=== PATIENT | female | born 2000 | race Caucasian/White ===

== ENCOUNTER → 2020-06-03 | Outpatient (CLI) | payer BC ==
[~2020-06-03] MED LIST: BENTYL 10MG CAP10 MG PO; CYCLOBENZAPRINE10 MG PO; CYCLOBENZAPRINE5 MG PO; NAPROSYN500 MG PO; ZOFRAN ODT 4 MG4 MG SL
== END ==
LOC: KOH-I 09:55
DX: R19.7 Diarrhea, unspecified (principal); K76.0 Fatty (change of) liver, not elsewhere classified
CPT/HCPCS: 76705

== ENCOUNTER 2020-06-08 20:32 | Emergency (ER) | payer BC ==
[~2020-06-08 20:32] MED LIST changes: -CYCLOBENZAPRINE10 MG PO; -NAPROSYN500 MG PO
[2020-06-08] MEDS ORDERED: CYCLOBENZAPRINE10 MG PO (23:18)
[2020-06-08] MEDS ORDERED: NAPROSYN500 MG PO (23:18)
== END 2020-06-08 23:34 | disposition home or self-care (01) ==
LOC: ER1 20:32
DX: S13.4XXA Sprain of ligaments of cervical spine, initial encounter (principal); S70.01XA Contusion of right hip, initial encounter; S60.221A Contusion of right hand, initial encounter; S40.011A Contusion of right shoulder, initial encounter; F17.290 Nicotine dependence, other tobacco product, uncomplicated; V48.5XXA Car driver injured in noncollision transport accident in traffic accident, initial encounter; Y92.410 Unspecified street and highway as the place of occurrence of the external cause
CPT/HCPCS: 72125; 73030; 73130; 73502; 84703; 99284

== ENCOUNTER 2021-07-21 00:10 | Emergency (ER) | payer BC ==
[~2021-07-21 00:10] MED LIST changes: +CYCLOBENZAPRINE10 MG PO; +NAPROSYN500 MG PO
[2021-07-21 01:02] LABS: HEMOGLOBIN 12.9 gm/dl (12.3-15.3); RED BLOOD COUNT 4.23 M/UL (4.00-5.10)
[2021-07-21 01:30] LABS: BUN/CREATININE RATIO 8 (0-10)
[2021-07-21] MEDS ORDERED: BENTYL 20MG TAB20 MG PO (03:52)
[2021-07-21] MEDS ORDERED: REGLAN10 MG PO (03:52)
== END 2021-07-21 04:02 | disposition home or self-care (01) ==
LOC: ER1 00:10
PROVIDERS: Physician Assistant
DX: O20.0 Threatened abortion (principal); Z88.0 Allergy status to penicillin; F17.290 Nicotine dependence, other tobacco product, uncomplicated
CPT/HCPCS: 76817; 80053; 81001; 84702; 84703; 85025; 86850; 86900; 86901; 87077; 87086; 87186; 99284